=== PATIENT | female | born 1995 | race Caucasian/White ===

== ENCOUNTER 2020-09-06 05:23 | Inpatient (IN) | payer OTHER ==
[~2020-09-06] VITALS: Ht 157.5 cm; Wt 76.8 kg
[2020-09-06] VITALS (47 sets, daily range): BP systolic 85–142; BP diastolic 50–104
[2020-09-06] MEDS ORDERED: PREN29CH2 PO (05:34)
[2020-09-06] MEDS ORDERED: LIDOCAINE 1% MDV 20ML VIAL INFIL PRN (07:25)
[2020-09-06] MEDS ORDERED: OXYTOCIN DRIP 30 UNITS in IV 1 EA IV PRN (07:25)
[2020-09-06] MEDS ORDERED: OXYTOCIN DRIP 30 UNITS in IV 1 EA IV SCH (07:30)
--- NOTE | 2020-09-06 07:48 | HPEPDOC ---
Obstetrical History & Physical General Date of Admission Sep 06, 2020 at 07:20 History of Present Illness Ms. Lundberg is a 24yo at 39+6 presenting for contractions and ROM at 1800 on 17JUL, clear, no odors. She denied VB and decreased FM. She otherwise denied a 12 point ROS. 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) Past Medical History Medical History Gestational hypertensin (criteria met on admission) Surgical History: Other (D+E) Family History Significant Family History: No pertinent family hx Social History Marital Status: Family situation: Spouse/partner home Psychosocial History: No pertinent psych hx * Smoker: non-smoker Alcohol: Denies Drugs: denies Imunizations Tdap status: current Influenza Status: current Allergies Coded Allergies: No Known Allergies (Unverified , 09/06/20) Medications Scheduled No115/Iron/Folic Acid ( 19 Chewable Tablet) 1 Each Tab.chew, 1 TAB PO DAILY Physical Examination Physical Examination GENERAL: Alert and oriented times three. BREAST: . ABDOMEN: Gravid and non-tender to touch. FETUS: Is vertex (VTX) by sterile vaginal examination (SVE), fetus is vertex (VTX) by US. MVP 7.5cm. HEART RATE: Regular rate and rhythm. LUNGS: Clear to auscultation (CTA). EXTREMITIES: No edema. No clonus. Vital Signs/I&O Vital Signs Date Time Temp Pulse Resp B/P (MAP) Pulse Ox O2 Delivery O2 Flow Rate FiO2 09/06/20 05:40 98.7 80 18 134/92 (106) 98 Room Air Laboratory Data Urine Culture: No Growth Pertinent Laboratoy Data Blood Type: O+ RBC Antibody Screen: Negative HIV: Negative Hepatitis B: Negative Rapid Plasma Reagin: Nonreactive Rubella: Immune Varicella: Immune Chlamydia/Gonorrhea: Negative Group B Streptococcus: Negative Cystic Fibrosis: Negative Glucose Tolerance Test: 111 Anatomy Ultrasound Placenta Location: Posterior Normal Anatomy: Yes Estimated Weight (grams): 3600 Vaginal Examination Dilation: 3 cm Effacement: 70% Station: -3 Cervical Consistency: Soft Cervical Position: Middle Presentation: Cephalic presentation (by US) Assessment Heart Rate (FHR): 130 Variability: Moderate Tocometer Contractions: Yes Frequency: regular Multi-drug resistant Organism: No history of MDRO Assessment/Plan Assessment Ms. Lundberg is a 24yo at 39+6 presenting for contractions and ROM (+pooling, +ferning, MVP 7.5cm) at 1800 on 17JUL, clear, no odors. SVE 3/75/-3. CAT I NST. VS with mild range BP, had mild range in clinic too, now meeting criteria for GHTN. No si/sx of pre-e. APC 1. gestational hypertension 2. anemia last H/H Rh pos, GBS neg, ceph by US, EFW 3600, placenta posterior Plan Will IOL for pitocin for PROM. Ordering tox labs. Admit and orient. I&C Technician and consent. Diet: clears Group B Streptococcus (GBS) [negative]. Labs and intravenous (IV) per unit protocol. Counseled on Pitocin and induction of labor (IOL). Lactated Ringers (LR): PRN Anticipate [normal spontaneous delivery ()]. C-S as appropriate. JORGE PICKENS DO Sep 06, 2020 07:48
[2020-09-06 08:02] LABS: HEMATOCRIT 41.6 % (36.0-47.0); HEMOGLOBIN 13.7 g/dl (12.0-15.5); MEAN CORPUSCULAR HGB CONC 32.9 g/dl (32.0-36.5); MEAN CORPUSCULAR VOLUME 87.9 fl (80.0-96.0); PLATELET COUNT, AUTOMATED 223 10^3/uL (150-450); RED BLOOD COUNT 4.73 10^6/uL (4.00-5.40); WHITE BLOOD COUNT 13.5 10^3/uL (4.0-10.0)
[2020-09-06] MEDS: LR 1,000 ML IV SCH ×2 (08:41→19:07)
[2020-09-06 09:22] LABS: CREATININE,RANDOM URINE 51.4 MG/DL; TOTAL PROTEIN,RANDOM URINE 11.3 MG/DL (0.0-12.0)
[2020-09-06 09:43] LABS: ALT/SGPT 22 U/L (12-78); BILIRUBIN,TOTAL 0.4 MG/DL (0.2-1.0); CREATININE FOR GFR 0.67 MG/DL (0.55-1.30); GLOMERULAR FILTRATION RATE > 60.0 (>60); LDH LACTATE DEHYDROGENASE 270 U/L (84-246); URIC ACID 4.5 MG/DL (2.6-6.0)
[2020-09-06] MEDS ORDERED: FENTANYL 2MCG/ML ROPIVACAINE 0.2% IN 0.9% NACL 100ML IVBAG As Ordered ONE (11:57)
[2020-09-06] MEDS ORDERED: diphenhydrAMINE 50MG/ML VIAL (J1200) IV PRN ×2 (12:10→16:25)
[2020-09-06] MEDS ORDERED: NALOXONE INJ 0.4MG/1ML VIAL (J2310 PER 1MG) IV PRN ×2 (12:10→16:25)
[2020-09-06] MEDS ORDERED: EPIDURAL COMMENT XX SCH ×2 (12:10→16:30)
[2020-09-06] MEDS ORDERED: REFRIGERATOR IV KEYS XX PRN ×2 (12:10→16:30)
[2020-09-06] MEDS ORDERED: ePHEDrine SULFATE 25 MG/5 ML(5MG/ML) SYRINGE IV PRN ×2 (12:10→16:25)
[2020-09-06] MEDS ORDERED: ONDANSETRON 4MG/2ML VIAL IV PRN ×2 (12:10→16:30)
[2020-09-06] MEDS ORDERED: LACTATED RINGER'S 1000 ML IV PRN ×2 (12:10→16:25)
[2020-09-06] MEDS ORDERED: FENTANYL/ROPIVACAINE/NACL BAG 100 ML EPIDURAL SCH ×2 (12:10→16:30)
[2020-09-06] MEDS ORDERED: EPIDURAL/PCA KEYS XX PRN ×2 (12:10→16:30)
--- NOTE | 2020-09-06 15:29 | IPNPDOC ---
Obstetrical Progress Note Date of Service Sep 06, 2020 Subjective To room for routine assessment. Objective Vital Signs Date Time Temp Pulse Resp B/P (MAP) Pulse Ox O2 Delivery O2 Flow Rate FiO2 09/06/20 14:15 80 107/62 (77) 09/06/20 12:11 18 09/06/20 12:08 99.0 09/06/20 05:40 98 Room Air Assessment Variability: Moderate Accelerations: Positive Decelerations: None Heart Rate Tracing: Category I Tocometer Contractions: Yes Frequency: regular Sterile Vaginal Examination Dilation: 3 cm Effacement (%): 70% Station: -3 Assessment and Plan Additional Comments CAT I NST reactive. SVE is unchanged. She has been ruptured since 1800 yesterday. I discussed that after 24h ruptured without progressing towards active labor I begin to get concerned about and maternal infection and sepsis and hemorrhage as well as increased surgical risks. We discussed that she will be 12h ruptured unchanged at 1930. 24h ruptured at 1800 and past 18h ruptured. I do not recommend going beyond 24h ruptured without progressing towards labor. The patient would like to wait until 24h ruptured and reassess. JORGE PICKENS DO Sep 06, 2020 15:29
--- NOTE | 2020-09-06 15:33 | DNPDOC ---
[facility] Delivery Note Delivery Note DATE OF DELIVERY: 09/06/20 PREDELIVERY DIAGNOSIS: 39+6/7 weeks' gestation and labor. POST DELIVERY DIAGNOSIS: Delivered. PROCEDURE: Spontaneous vaginal delivery BALL MAKER: Dr. Louis Pickens DO ANESTHESIA: local lidocaine injection ESTIMATED BLOOD LOSS: 100 mL. FINDINGS: 3080g infant, Score 8/8, nuchal cord times 0. DELIVERY SUMMARY: Ms. Lundberg is a 24yo at 39+6 presented initially with ROM and required augmentation of labor with pitocin. She progressed to c/c/+3 and with good maternal effort delivered the head followed by the body without difficulty. The baby had spontaneous movement and cry. Cord clamping was delayed 60s. The cord was clamped and cut by the FOB. Cord blood and gasses were obtained. The placenta was delivered via aleks downward traction and was in- tact. A first degree perineal laceration was repaired with 2-0 vicryl in the usual fashion and was hemostatic. Small bilateral labial abrasions did not require repair. The uterus was firm and bleeding was scant. The sponge, lap and needle counts were correct x2. There were no complications. LOUIS PICKENS DO Sep 06, 2020 15:33
[2020-09-06] MEDS ORDERED: ACETAMINOPHEN 500 MG TAB PO PRN (15:35)
[2020-09-06] MEDS ORDERED: IBUPROFEN 600MG TAB PO PRN (15:35)
[2020-09-06] MEDS ORDERED: DOCUSATE SODIUM 100MG CAPSULE PO PRN (15:35)
[2020-09-06] MEDS ORDERED: RHOGAM 300 MCG (1500 IU) INJ (J2790) IM SCH (15:35)
[2020-09-06] MEDS ORDERED: ACETAMINOPHEN TAB 650MG DOSE (2X325MG) PO PRN (15:35)
[2020-09-06] MEDS ORDERED: IBUPROFEN 800 MG TAB PO PRN (15:35)
--- NOTE | 2020-09-06 22:38 | IPNPDOC ---
Obstetrical Progress Note Date of Service Sep 06, 2020 Subjective To room for routine assessment. Patient reports slight increase in pressure. Objective Vital Signs Date Time Temp Pulse Resp B/P (MAP) Pulse Ox O2 Delivery O2 Flow Rate FiO2 09/06/20 20:48 99 18 105/58 (74) 09/06/20 19:18 98.2 98 Room Air Assessment Variability: Moderate Accelerations: Positive Decelerations: None Heart Rate Tracing: Category I Tocometer Contractions: Yes Sterile Vaginal Examination Dilation: 4 cm Effacement (%): 70% Station: -2 Cervical Consistency: Soft Cervical Position: Middle Postion/Presentation: Cephalic presentation (by exam) Assessment and Plan Status: Reassuring Additional Comments CAT I NST reactive. RN exam with change from 3 to 4cm at 1700. At 2230 she remains 4cm. I again discussed prolonged rupture of membranes and the associated risks as she is >24h ruptured. I also discussed that at 1230 she will be 18h on pitocin ruptured without cervical change. At that point I would again highly recommend a as her labor pattern is abnormal. She is amenable to this. JORGE PICKENS DO Sep 06, 2020 22:38
[2020-09-07] VITALS (11 sets, daily range): BP systolic 103–143; BP diastolic 58–79
[2020-09-07] MEDS ORDERED: ceFAZolin SOD 2 GM in IV 1 EA IV ONE (00:40)
[2020-09-07] MEDS ORDERED: AZITHROMYCIN INJ 500 MG, VIAL MATE ADAPTER 1 EACH in NS 250 ML IV ONE (00:40)
[2020-09-07] MEDS ORDERED: BICITRA 30ML SOLN UDC PO ONE (00:40)
[2020-09-07] MEDS ORDERED: BUPIVACAINE HCL 0.25% 10ML VIAL SC SCH (00:40)
[2020-09-07] MEDS ORDERED: BICITRA 30ML SOLN UDC As Ordered ONE (00:41)
[2020-09-07] MEDS ORDERED: ceFAZolin 2 GM/D5W 50 ML IV BAG (J0690 PER 500MG) As Ordered ONE (00:41)
[2020-09-07] MEDS ORDERED: AZITHROMYCIN INJ 500MG VIAL (J0456 PER 500MG) As Ordered ONE (00:42)
--- NOTE | 2020-09-07 00:58 | ROOPDOC ---
[facility] Report Of Operation Report of Operation DATE OF PROCEDURE: 09/07/20 PREPROCEDURE DIAGNOSES: 40+0 weeks gestation, failed induction of labor, prolonged rupture of membranes, gestational hypertension, anemia POSTPROCEDURE DIAGNOSES: same + delivered, macrosomia, asynclitic presentation PROCEDURE PERFORMED: primary delivery SURGEON: Louis Pickens DO EXTENSION ASSOCIATE: Lorenzo Garland MD ANESTHESIA: epidural ESTIMATED BLOOD LOSS: Approximately 600 mL. COMPLICATIONS: none REMARKS: none SPECIMENS REMOVED: placenta PROCEDURE NOTE: The risks, benefits, and alteratives of the procedure were discussed and written consent obtained. The patient was taken to the OR where her epidural was dosed to a surgical level. She was positioned supine with a left lateral tilt. 2g of ancef and 500mg azithromicin were administered pre-op. The abdomen was prepped and draped in a sterile fashion. A final time out was performed. The anesthesia was tested to be adequate. A pfannensteil incision was made with a scalpel to the level of the fascia which was scored. The incision was extended in a curvilinear fashion with the curved aquino scissors. The superior fascial edge was elevated with katy clamps and dissected from the muscles with blunt dissection and the scalpel. The procedure was repeated on the inferior edge. The muscles were and peritoneum entered bluntly. The lower uterine segment was identified. A bladder flap was made with the metzaumbaum scissors and a bladder blade was placed. A transverse incision was made in the lower uterine segment and the incision extended superiorly and inferiorly bluntly. The head was elevated to the hysterotomy and with the aid of abdominal pressure the head was delivered followed by the corpus without difficulty. The head was noted to be asynclitic on the cervix. The baby had spontaneous movement and cry. The cord was clamped x2 and cut and the baby handed to the pediatrics team. Cord gasses and blood were obtained. The placenta was delivered via manual expression and was in-tact. The uterus was exteriorized and cleared of debris with a moist lab. The hysterotomy was closed with 0-vicryl in a running fashion. The hysterotomy was hemostatic. The posterior cul-de-sac was cleared of debris with pool suction and a moist lap. The uterus was replaced in the abdomen. The gutters were cleared of debris with a moist lap. The hysterotomy was viewed off tension and was hemostatic. The muscles and fascia were inspected and hemostatic. The fascia was closed with 0-vicryl in a running fashion and was palpated to have no defects. The subcutaneous tissue was irrigated and 0.25% marcaine injected. The subcutaneous tissue was hemostatic with the aid of bovie cautery and was reapproximated with 2-0 vicryl in a running fashion. The skin was closed with 3-0 monocryl and secured with dermabond. The uterus was swept of clots and was firm, bleeding was scant. The sponge, lap, and needle counts were correct x2. There were no complications. The patient tolerated the procedure well and was transferred to recovery in stable condition. The uterine incision was made in a fashion where the patient is eligible for vaginal delivery after delivery. LOUIS PICKENS DO Sep 07, 2020 00:58
--- NOTE | 2020-09-07 01:01 | IPNPDOC ---
Obstetrical Progress Note Date of Service Sep 07, 2020 Subjective To room for routine assessment. Objective Vital Signs Date Time Temp Pulse Resp B/P (MAP) Pulse Ox O2 Delivery O2 Flow Rate FiO2 09/06/20 20:48 99 18 105/58 (74) 09/06/20 19:18 98.2 98 Room Air Assessment Variability: Moderate Accelerations: Positive Decelerations: None Heart Rate Tracing: Category I Tocometer Contractions: Yes Frequency: regular Sterile Vaginal Examination Dilation: 4 cm Effacement (%): 70% Station: -3 Cervical Consistency: Medium Cervical Position: Posterior Postion/Presentation: Cephalic presentation Assessment and Plan Status: Reassuring Anticipate: Section Additional Comments CAT I NST reactive. SVE unchanged. Now with 18h without significant cervical change on pitocin and ruptured. Meeting criteria for failed induction of labor as well as prolonged rupture >24 hours. Patient is amenable to a at this time. 2g ancef and 500mg azithro ordered for abx ppx. SCDs and early ambulation for DVT ppx. Bicitra for GI ppx. Patient educated on risks and alternatives and written consent obtained. JORGE PICKENS DO Sep 07, 2020 01:01
[2020-09-07] MEDS ORDERED: OXYTOCIN INJ 10 UNITS/ML VIAL (J2590) As Ordered ONE (01:09)
[2020-09-07] MEDS ORDERED: NALBUPHINE HCL 10 MG/ML AMP (J2300) IV PRN (01:30)
[2020-09-07] MEDS ORDERED: METOCLOPRAMIDE INJ 10MG/2ML VIAL (J2765 PER 1) IV PRN (01:30)
[2020-09-07] MEDS ORDERED: diphenhydrAMINE 50MG/ML VIAL (J1200) IV PRN (01:30)
[2020-09-07] MEDS ORDERED: NALOXONE INJ 0.4MG/1ML VIAL (J2310 PER 1MG) IV PRN ×2 (01:30)
[2020-09-07] MEDS ORDERED: ONDANSETRON 4MG/2ML VIAL IV PRN ×2 (01:30→02:25)
[2020-09-07] MEDS ORDERED: MORPHINE PRES-FREE INJ 10 MG/10 ML VIAL (J2274) As Ordered ONE (01:30)
[2020-09-07] MEDS ORDERED: fentaNYL 100 MCG/2 ML INJECTION (J3010) As Ordered ONE (01:31)
[2020-09-07] MEDS ORDERED: LIDOCAINE PRES-FREE 2% 10ML AMP As Ordered ONE ×2 (01:37→01:49)
[2020-09-07] MEDS ORDERED: PHENYLephrine 500MCG 5ML (100MCG/ML) SYRINGE As Ordered ONE (01:49)
[2020-09-07] MEDS ORDERED: OXYTOCIN DRIP 30 UNITS in IV 1 EA IV SCH (02:00)
[2020-09-07] MEDS ORDERED: DOCUSATE SODIUM 100MG CAPSULE PO PRN (02:05)
[2020-09-07] MEDS ORDERED: SIMETHICONE 80MG CHEW TAB PO PRN (02:05)
[2020-09-07] MEDS ORDERED: ACETAMINOPHEN TAB 650MG DOSE (2X325MG) PO PRN (02:05)
[2020-09-07] MEDS ORDERED: ACETAMINOPHEN 500 MG TAB PO PRN (02:05)
[2020-09-07] MEDS ORDERED: LR 1,000 ML IV SCH ×2 (02:05→02:25)
[2020-09-07] MEDS ORDERED: oxyCODONE 5MG TAB PO PRN (02:05)
[2020-09-07] MEDS ORDERED: OXYTOCIN 30 UNITS IN 0.9% NaCl 500ML IV BAG (J2590) As Ordered ONE (02:09)
[2020-09-07 02:17] LABS: CORD GAS ABE A -5.6; CORD GAS HCO3 A 22.3 MEQ/L; CORD GAS HCO3 V 19.8 MEQ/L; CORD GAS O2 SAT A 47.8 %; CORD GAS O2 SAT V 92.3 %; CORD GAS PCO2 A 53.2 mmHg; CORD GAS PH A 7.241 UNITS; CORD GAS PH V 7.312 UNITS; CORD GAS PO2 A 22.3 mmHg; CORD GAS PO2 V 52.4 mmHg; CORD GAS SBC A 18.8 MEQ/L; CORD GAS SBC V 19.5 MEQ/L
[2020-09-07] MEDS ORDERED: PERCOCET 5MG/325MG TAB PO PRN (02:25)
[2020-09-07] MEDS ORDERED: KETOROLAC 30 MG/ML 1ML VIAL IV PRN (02:25)
[2020-09-07] MEDS ORDERED: fentaNYL 100 MCG/2 ML INJECTION (J3010) IV PRN (02:25)
[2020-09-07] MEDS ORDERED: KETOROLAC 30 MG/ML 1ML VIAL As Ordered ONE (02:49)
[2020-09-07] MEDS: PRENATAL VITAMINS CHEWABLE TABLET PO SCH (09:00)
[2020-09-07] MEDS ORDERED: PRENATAL VITAMINS CHEWABLE TABLET PO SCH (09:00)
[2020-09-07] MEDS: IBUPROFEN 800 MG TAB PO SCH ×2 (11:03→19:35)
[2020-09-08 02:00] VITALS: BP 125/84
[2020-09-08] MEDS: IBUPROFEN 800 MG TAB PO SCH ×3 (02:43→18:46)
[2020-09-08 05:59] VITALS: BP 129/79
--- NOTE | 2020-09-08 07:09 | IPNPDOC ---
Progress Note Date of Service: Sep 08, 2020 Progress Note SUBJECT: Ms. Lundberg is a 24yo G2 now P1011 status post uncomplicated primary low transverse for failed induction/prolonged rupture of membranes at 40- 0/7 weeks' at approximately 0100 hours on Aug of a female infant, doing well postop day #1. She has been ambulating, voiding spontaneously without issue and tolerating regular diet. Breast feeding without issue. Reports lochia is minimal. Desires Paragard at 6wk PP visit for contraception. OBJECTIVE: VITAL SIGNS: Within normal limits, afebrile. Alert and oriented times three. normal work of breathing Heart rate: Regular rate . Abdomen: Fundus firm at U-2. Soft, NTTP. Incision c/d/i with dermabond ASSESSMENT: Ms. Lundberg is a 24yo G2 now P1011 status post uncomplicated primary low transverse at 40-0/7 weeks' at approximately 0100 hours on Aug of a female , doing well postop day #1. Vitals within normal limits, afebrile, hemodynamically stable with no evidence of infection. PLAN: 1. Discharge to home on postop day 2 or 3. 2. Tylenol, Motrin and oxycodone prn for pain. 3. breast feeding without difficulty. Encourage ambulation. 4. Planning paragard for contraception at 6wk PP visit 5. Routine PP visit in 6 weeks in clinic. Incision check at 2 weeks VS, I&O, 24H, Juan David Vital Signs/I&O Vital Signs Date Time Temp Pulse Resp B/P (MAP) Pulse Ox O2 Delivery O2 Flow Rate FiO2 09/08/20 05:59 97.6 66 18 129/79 (96) 97 Room Air I&O- Last 24 Hours up to 6 AM 09/08/20 05:59 Intake Total 1275 ml Output Total 1350 ml Balance -75 ml Laboratory Data CBC/BMP Laboratory Tests 09/06/20 07:45 JASON LOPEZ M.D. Sep 08, 2020 07:09
[2020-09-08] MEDS: PRENATAL VITAMINS CHEWABLE TABLET PO SCH (09:00)
[2020-09-08 10:15] VITALS: BP 120/68
[2020-09-08] MEDS: PERCOCET 5MG/325MG TAB PO PRN ×2 (12:08→22:12)
[2020-09-08 14:17] VITALS: BP 131/60
[2020-09-08 18:00] VITALS: BP 129/71
[2020-09-08 22:12] VITALS: BP 135/78
[2020-09-09] MEDS: IBUPROFEN 800 MG TAB PO SCH ×2 (02:36→10:18)
[2020-09-09 05:47] VITALS: BP 126/80
[2020-09-09] MEDS ORDERED: OXYC-517 PO (08:13)
[2020-09-09] MEDS ORDERED: DOK1CAP7 PO (08:13)
[2020-09-09] MEDS ORDERED: IBUP80TA PO (08:13)
[2020-09-09] MEDS: PRENATAL VITAMINS CHEWABLE TABLET PO SCH (10:17)
--- NOTE | 2020-09-09 10:25 | DSES ---
DISCHARGE SUMMARY DATE OF ADMISSION: 09/06/2020 DATE OF DISCHARGE: 09/09/2020 BRIEF HISTORY: This lady is a 25-year-old 2, now para 1, admitted at 39 and 6 weeks of gestation with contractions and spontaneous rupture of membranes. She had a primary section for a failed induction of labor, augmentation of labor, prolonged rupture of membranes. Delivered a female , 8 pounds 14 ounces, Apgars 9 and 9 at 1 and 5 minutes respectively. Arterial pH 7.24, base access -5.6, venous pH 7.31, base access -6.0. On her second day, we discussed phlebitis, cystitis, mastitis, endometritis and cellulitis, diet, exercise, pain management, perineal, breast and wound care. Her admitting hemoglobin 13.7, hematocrit 41.6, platelets 223,000. PHYSICAL EXAMINATION: Discharge vital signs: Blood pressure 126/80, respirations 17, pulse 59, temperature 97.5. The rest of the examination unremarkable. Normocephalic, atraumatic. Neck full range of motion. Pupils equal and reactive to light. Distal pulses are symmetric. No evidence of DVT, PE or superficial phlebitis. Chest is clear bilaterally to bases. No wheezes or rhonchi. No CVA tenderness. Abdomen is soft, four quadrant bowel sounds are noted. Incision is clean and dry. Uterus is two below. No rashes, lesions or pruritis. No arthralgia or myalgia. No complaint of joint pain. No complaint of cough, wheeze, shortness of breath or dyspnea on exertion. No nausea, vomiting, diarrhea or constipation. No urgency or frequency. The rest of the discussion revolved around picking up her medications at [facility]. Two-week incision check. Six-week checkup at [facility], at which time control will be discussed. All questions were answered, 20-minute discussion. Patient was discharged improved
== END 2020-09-09 13:10 | disposition home or self-care (01) | DRG 773 ==
LOC: M LDO 05:23 → M LDI 07:20 → M OBS 09-07 03:26
PROVIDERS: ADMIT Obstetrics & Gynecology; ATTEND Obstetrics & Gynecology
PROC: 3E033VJ Introduction of Other Hormone into Peripheral Vein, Percutaneous Approach (ICD-10-PCS; 2020-09-06)
PROC: 10D00Z1 Extraction of Products of Conception, Low, Open Approach (ICD-10-PCS; principal; 2020-09-07 00:43)
DX: O13.4 Gestational [pregnancy-induced] hypertension without significant proteinuria, complicating childbirth (principal); Z37.0 Single live birth; Z3A.39 39 weeks gestation of pregnancy; D64.9 Anemia, unspecified; O99.02 Anemia complicating childbirth; O61.0 Failed medical induction of labor

== ENCOUNTER → 2022-02-28 | Outpatient (CLI) | payer OTHER ==
[~2022-02-28] MED LIST: DOK1CAP4 PO; IBUP80TA PO; OXYC-517 PO; PREN29CH2 PO
== END ==
LOC: M WHC 10:39
PROVIDERS: ATTEND Advanced Practice Midwife
DX: Z36.89 Encounter for other specified antenatal screening (principal); Z3A.20 20 weeks gestation of pregnancy

== ENCOUNTER 2022-07-07 07:36 | Inpatient (IN) | payer OTHER ==
[~2022-07-07] VITALS: Ht 160 cm; Wt 74.3 kg
[2022-07-07] VITALS (9 sets, daily range): BP systolic 114–136; BP diastolic 55–90
[~2022-07-07 07:36] MED LIST changes: +DOCU100C16
[2022-07-07] MEDS ORDERED: PRENTAB9 PO (08:07)
[2022-07-07] MEDS ORDERED: HOME MED LIST COMPLETE! XX SCH (08:10)
[2022-07-07] MEDS ORDERED: METHYLERGONOVINE MALEATE 0.2MG/ML 1ML VIAL IM PRN (08:15)
[2022-07-07] MEDS ORDERED: OXYTOCIN DRIP 30 UNITS in IV 1 EA IV PRN ×4 (08:15)
[2022-07-07] MEDS ORDERED: LACTATED RINGER'S 1000 ML IV STA (08:15)
[2022-07-07] MEDS ORDERED: TRANEXAMIC ACID INJection 1,000 MG in NS 100 ML IV PRN (08:15)
[2022-07-07] MEDS ORDERED: ceFAZolin SOD 2 GM in IV 1 EA IV ONE (08:15)
[2022-07-07] MEDS ORDERED: CARBOPROST TROMETHAMINE 250 MCG/ML AMP IM PRN (08:15)
[2022-07-07] MEDS ORDERED: BICITRA 30ML SOLN UDC PO ONE (08:15)
[2022-07-07 08:41] LABS: HEMOGLOBIN 12.7 g/dl (12.0-15.5); MEAN CORPUSCULAR HEMOGLOBIN 31.8 pg (27.0-33.0); MEAN CORPUSCULAR HGB CONC 34.3 g/dl (32.0-36.5); MEAN CORPUSCULAR VOLUME 92.5 fl (80.0-96.0); PLATELET COUNT, AUTOMATED 167 10^3/uL (150-450); WHITE BLOOD COUNT 8.5 10^3/uL (4.0-10.0)
[2022-07-07] MEDS: DOCUSATE SODIUM 100MG CAPSULE PO SCH ×2 (09:00→20:04)
[2022-07-07] MEDS: PRENATAL VITAMINS CHEWABLE TABLET PO SCH (09:00)
[2022-07-07] MEDS: LR 1,000 ML IV SCH ×2 (09:02→13:01)
[2022-07-07] MEDS ORDERED: OXYTOCIN INJ 10UNITS/ML 1ML VIAL As Ordered ONE (10:19)
[2022-07-07] MEDS ORDERED: KETOROLAC 60MG 2ML VIAL As Ordered ONE (10:19)
[2022-07-07] MEDS ORDERED: MORPHINE PRES-FREE INJ 10 MG/10 ML VIAL As Ordered ONE (10:19)
[2022-07-07] MEDS ORDERED: PHENYLephrine 500MCG 5ML (100MCG/ML) SYRINGE As Ordered ONE (11:00)
[2022-07-07] MEDS ORDERED: fentaNYL 100 MCG/2 ML INJECTION As Ordered ONE ×2 (11:42→13:22)
[2022-07-07] MEDS ORDERED: METHYLERGONOVINE MALEATE 0.2 MG TAB PO PRN (11:55)
[2022-07-07] MEDS ORDERED: OXYTOCIN DRIP 30 UNITS in IV 1 EA IV SCH ×4 (11:55)
[2022-07-07] MEDS ORDERED: RHOGAM 300MCG (1500IU) INJ IM SCH (11:55)
[2022-07-07] MEDS ORDERED: MOM 30ML SUSPENSION UDC PO PRN (11:55)
[2022-07-07] MEDS ORDERED: ONDANSETRON 4MG 2ML VIAL IV PRN ×2 (11:55→13:05)
[2022-07-07] MEDS ORDERED: oxyCODONE 5MG TAB PO PRN ×2 (11:55→13:05)
[2022-07-07] MEDS ORDERED: ACETAMINOPHEN 500 MG TAB PO SCH (12:00)
[2022-07-07] MEDS ORDERED: OXYTOCIN 30UNITS IN 0.9% NaCl 500ML IV BAG As Ordered ONE (12:43)
[2022-07-07] MEDS ORDERED: MEPERIDINE 25 MG/ML 1ML VIAL IV PRN (13:05)
[2022-07-07] MEDS ORDERED: fentaNYL 100 MCG/2 ML INJECTION IV PRN (13:05)
[2022-07-07] MEDS ORDERED: diphenhydrAMINE 50MG/ML VIAL IV PRN (13:05)
[2022-07-07] MEDS ORDERED: **NOTE PATIENT COMMENT** MISC XX SCH (13:05)
[2022-07-07] MEDS ORDERED: METOCLOPRAMIDE INJ 10MG/2ML VIAL IV PRN (13:05)
[2022-07-07] MEDS: SLF 3 ML SYR IV SCH ×2 (13:05→21:05)
[2022-07-07] MEDS ORDERED: NALOXONE INJ 0.4MG/1ML VIAL IV PRN ×2 (13:05)
[2022-07-07] MEDS ORDERED: HYDROMORPHONE HCL 0.5 MG/ 0.5 ML SYRINGE IV PRN (13:05)
[2022-07-07] MEDS: ACETAMINOPHEN 500 MG TAB PO SCH ×2 (15:54→20:05)
[2022-07-07] MEDS: KETOROLAC 30 MG/ML 1ML VIAL IV SCH (18:05)
[2022-07-07] MEDS: SIMETHICONE 80MG CHEW TAB PO PRN (20:05)
[2022-07-08] MEDS: KETOROLAC 30 MG/ML 1ML VIAL IV SCH ×2 (00:24→05:41)
[2022-07-08 02:00] VITALS: BP 106/61
[2022-07-08] MEDS: LR 1,000 ML IV SCH (02:12)
[2022-07-08] MEDS: ACETAMINOPHEN 500 MG TAB PO SCH ×4 (03:11→20:32)
[2022-07-08] MEDS: SLF 3 ML SYR IV SCH (05:05)
[2022-07-08 06:00] VITALS: BP 119/74
[2022-07-08 07:50] LABS: MEAN CORPUSCULAR HEMOGLOBIN 31.3 pg (27.0-33.0); MEAN CORPUSCULAR HGB CONC 33.4 g/dl (32.0-36.5); MEAN CORPUSCULAR VOLUME 93.6 fl (80.0-96.0); PLATELET COUNT, AUTOMATED 159 10^3/uL (150-450); RED BLOOD COUNT 3.29 10^6/uL (4.00-5.40)
[2022-07-08 07:57] LABS: HEMATOCRIT 30.8 % (36.0-47.0); HEMOGLOBIN 10.3 g/dl (12.0-15.5)
[2022-07-08] MEDS: SIMETHICONE 80MG CHEW TAB PO PRN (08:08)
[2022-07-08] MEDS: PRENATAL VITAMINS CHEWABLE TABLET PO SCH (08:08)
[2022-07-08] MEDS: DOCUSATE SODIUM 100MG CAPSULE PO SCH ×2 (08:08→20:33)
[2022-07-08 10:00] VITALS: BP 103/56
[2022-07-08 14:00] VITALS: BP 129/66
[2022-07-08] MEDS: IBUPROFEN 800 MG TAB PO SCH ×2 (14:10→22:29)
[2022-07-08] MEDS: oxyCODONE 5MG TAB PO PRN (16:54)
[2022-07-08 18:00] VITALS: BP 127/63
[2022-07-08 22:00] VITALS: BP 126/62
[2022-07-09 02:00] VITALS: BP 121/83
[2022-07-09] MEDS: ACETAMINOPHEN 500 MG TAB PO SCH ×2 (02:26→08:27)
[2022-07-09 06:00] VITALS: BP 136/86
[2022-07-09] MEDS: IBUPROFEN 800 MG TAB PO SCH ×2 (06:03→14:11)
[2022-07-09] MEDS: PRENATAL VITAMINS CHEWABLE TABLET PO SCH (08:27)
[2022-07-09] MEDS: DOCUSATE SODIUM 100MG CAPSULE PO SCH (08:27)
[2022-07-09] MEDS: oxyCODONE 5MG TAB PO PRN ×2 (08:30→14:11)
[2022-07-09] MEDS ORDERED: MEASLES,MUMPS,RUBELLA VACCINE INJ (MMR-II) SC.IMMUN ONE (09:00)
[2022-07-09] MEDS ORDERED: INFLUENZA QUADRIVALENT PF VACCINE 0.5ML SYRINGE IM.IMMUN ONE (09:00)
[2022-07-09 10:00] VITALS: BP 109/71
== END 2022-07-09 14:45 | disposition home or self-care (01) | DRG 773 ==
LOC: M LDI 07:36 → M OBS 14:00
PROVIDERS: ADMIT Obstetrics & Gynecology; ATTEND Obstetrics & Gynecology
PROC: 10D00Z1 Extraction of Products of Conception, Low, Open Approach (ICD-10-PCS; principal; 2022-07-07 09:30)
DX: O34.211 Maternal care for low transverse scar from previous cesarean delivery (principal); Z3A.39 39 weeks gestation of pregnancy; Z37.0 Single live birth